=== PATIENT | female | born 1960 | race Caucasian/White ===

== ENCOUNTER 2017-09-28 01:14 | Inpatient (IN) | payer OTHER ==
[2017-09-28] VITALS (434 sets, daily range): BP systolic 122–153; BP diastolic 71–87; PULSE 87–105; TEMP 97.9–98.4; O2SAT 77–100
[~2017-09-28] VITALS: Ht 162.6 cm; Wt 111.9 kg
[~2017-09-28 01:14] MED LIST: HCTZ 25MG TAB25 MG PO; PRILOSEC 20MG20 MG PO; VITAMIN D32000 IU PO
[2017-09-28] MEDS ORDERED: DECADRON 4MG TAB4 MG PO (03:41)
[2017-09-28] MEDS ORDERED: DECADRON0.5 MG PO (03:41)
[2017-09-28] MEDS ORDERED: PROTONIX20 MG PO (03:42)
[2017-09-28] MEDS ORDERED: SYNTHROID 0.0.025 MG PO (03:42)
[2017-09-28] MEDS ORDERED: ARIMIDEX1 MG PO (03:43)
[2017-09-28] MEDS ORDERED: KEPPRA 500MG500 MG PO (03:44)
[2017-09-28 07:05] LABS: BASO % 0.4 % (0.0-2.0); EOS # 0.2 (0.0-0.7); EOS % 1.4 % (0-4.0); GRAN # 8.2 (1.4-6.5); GRAN % 73.2 % (42.2-75.2); HEMOGLOBIN 13.1 g/dl (12.5-16.0); LYMPH # 2.1 (1.2-3.4); MEAN CELL VOLUME 95 fl (80.0-100.0); MEAN CORPUSCULAR HEMOGLOBIN 31 pg (27.0-31.0); MEAN CORPUSCULAR HGB CONC 33 g/dl (33.0-37.0); MEAN PLATELET VOLUME 9.6 fl (7.4-10.4); MONO # 0.6 (0.1-0.6); MONO % 5.6 % (1.7-9.3); PLATELET COUNT 281 K/mm3 (130-400); REDCELL DISTRIBUTION WIDTH-CV 13.6 % (11.5-14.5)
[2017-09-28] MEDS ORDERED: KEPPRA1000 MG PO (07:14)
[2017-09-28 07:19] LABS: CALCIUM 9.3 mg/dL (8.4-10.2); CREATININE, serum 0.64 mg/dL (0.52-1.25)
[2017-09-28 07:21] LABS: POTASSIUM 2.9 mmol/L (3.4-5.0)
[2017-09-28 07:50] LABS: TSH w REFLEX 7.19 uIU/mL (0.465-4.680)
[2017-09-28 17:45] LABS: MUCOUS Present /lpf; PH 7 (5-8); URINE APPEARANCE Hazy; URINE BACTERIA Rare /hpf; URINE BILIRUBIN Negative (NEGATIVE); URINE BLOOD Negative (NEGATIVE); URINE COLOR Yellow; URINE GLUCOSE Negative (NEGATIVE); URINE KETONE Negative (NEGATIVE); URINE LEUKOCYTE ESTERASE 3+ (NEGATIVE); URINE NITRATE Negative (NEGATIVE); URINE PROTEIN(semi-quant) Negative (NEGATIVE); URINE RBC 0-2 /hpf; URINE UROBILINOGEN Negative (NEGATIVE)
[2017-09-28 17:52] LABS: COLLECTION METHOD CLEAN CATCH
[2017-09-29 04:38] VITALS: BP 128/66; PULSE 85; TEMP 98.2
[2017-09-29 08:17] VITALS: BP 133/58; PULSE 86; TEMP 97.4
[2017-09-29 11:57] VITALS: BP 125/64; PULSE 83; TEMP 97.7
[2017-09-29 15:09] VITALS: BP 127/76; PULSE 103; TEMP 97.8
[2017-09-29 20:51] VITALS: BP 120/64; PULSE 70; TEMP 97.6
[2017-09-30 00:15] VITALS: BP 127/72; PULSE 84; TEMP 97.8
[2017-09-30 03:27] VITALS: BP 143/70; PULSE 58; TEMP 98
[2017-09-30 08:25] VITALS: BP 120/89; PULSE 59; TEMP 97.8
[2017-09-30 12:04] VITALS: BP 111/55; PULSE 87; TEMP 97.9; TEMP 98.4
[2017-09-30 16:41] VITALS: BP 121/75; PULSE 85; TEMP 98.6
[2017-09-30 19:01] VITALS: BP 137/56; PULSE 82; TEMP 98.1
[2017-10-01] VITALS (7 sets, daily range): BP systolic 101–133; BP diastolic 57–97; PULSE 53–84; TEMP 97.4–98.7
[2017-10-01 11:13] LABS: CALCIUM 9.4 mg/dL (8.4-10.2); CREATININE, serum 0.66 mg/dL (0.52-1.25); POTASSIUM 3.5 mmol/L (3.4-5.0)
[2017-10-02 04:11] VITALS: BP 130/76; PULSE 58; TEMP 97.8
[2017-10-02] MEDS ORDERED: NORCO 325 MG-51 TAB PO (07:38)
[2017-10-02] MEDS ORDERED: KEPPRA 500MG500 MG PO (07:38)
[2017-10-02 08:09] VITALS: BP 144/66; PULSE 53; TEMP 97.4
[2017-10-02] MEDS ORDERED: DECADRON6 MG PO (08:41)
[2017-10-02 10:24] VITALS: BP 144/66; PULSE 53; TEMP 97.4
== END 2017-10-02 12:04 | DRG 55 ==
LOC: ICU 01:14 → MEDICAL 18:48
PROVIDERS: Nurse Practitioner Family; Physician Assistant
DX: C79.31 Secondary malignant neoplasm of brain (principal); G83.84 Todd's paralysis (postepileptic); G40.909 Epilepsy, unspecified, not intractable, without status epilepticus; C50.919 Malignant neoplasm of unspecified site of unspecified female breast; E03.9 Hypothyroidism, unspecified; E87.6 Hypokalemia; Z66 Do not resuscitate; Z92.21 Personal history of antineoplastic chemotherapy
CPT/HCPCS: 99222-AI; 99232-AI; 99233-AI; 99239; A9585; G0378; G8987-GO; G8988-GO; J8540